=== PATIENT | female | born 1995 | race African-American/Black ===

== ENCOUNTER 2017-09-05 20:57 | Emergency (ER) | payer MEDICAID ==
[~2017-09-05] VITALS: Ht 160 cm; Wt 56.6 kg
[2017-09-06] MEDS ORDERED: MORPHINE SULFATE 4 MG/ML CPJ (NOT FOR IM USE) IV STA (02:57)
[2017-09-06] MEDS ORDERED: FAMOTIDINE 20MG/2ML VIAL IV STA (02:57)
[2017-09-06] MEDS ORDERED: SODIUM CHLORIDE 0.9% 1,000 ML IV ONE (02:57)
[2017-09-06] MEDS ORDERED: ONDANSETRON HCL 4MG/2ML VIAL IV STA (02:57)
[2017-09-06 03:20] LABS: BASOPHILS % 0.8 % (0.0-2.0); EOSINOPHILS % 1.1 % (0.0-5.0); HEMATOCRIT. 34.5 % (36.0-48.0); LYMPHOCYTES % 27.5 % (20.0-50.0); MEAN CORPUSCULAR VOLUME 74.8 fL (81.0-99.0); MEAN PLATELET VOLUME 8.4 fl (7.4-10.4); MONOCYTES % 9.8 % (2.0-8.0); NEUTROPHILS % 60.8 % (40.0-76.0); PLATELET 320 x1000/uL (130-400); RED BLOOD CELL COUNT 4.61 mill/uL (4.2-5.4); RED CELL DISTRIBUTION WIDTH 14.9 % (11.6-14.6)
[2017-09-06 03:23] LABS: INR 1.1; PROTHROMBIN TIME 11.6 sec (9.4-11.6)
[2017-09-06 03:27] LABS: HCG SCREEN NEGATIVE
[2017-09-06 03:30] LABS: CHLORIDE 103 mEq/L (98-107); ETHANOL BLOOD < 10 mg/dL
[2017-09-06] MEDS ORDERED: KCL 20MEQ/100ML PREMIX 100 ML IV NR (04:15)
[2017-09-06 04:18] LABS: CLARITY URINE CLOUDY (CLEAR); COLOR URINE DARK YELLOW (YELLOW); KETONES URINE 3+ (NEGATIVE); LEUKOCYTE ESTERASE URINE NEGATIVE (NEGATIVE); NITRITE URINE NEGATIVE (NEGATIVE); OCCULT BLOOD URINE NEGATIVE (NEGATIVE); PROTEIN URINE 1+ (NEGATIVE); SPECIFIC GRAVITY URINE 1.031 (1.005-1.030); UROBILINOGEN URINE 0.2 E.U./dL (0.2-1.0)
[2017-09-06 04:38] LABS: *AMPHETAMINES SCREEN URINE NEGATIVE (NEGATIVE); *BARBITURATES SCREEN URINE NEGATIVE (NEGATIVE); *BENZODIAZEPINES SCREEN URINE NEGATIVE (NEGATIVE); *COCAINE SCREEN URINE NEGATIVE (NEGATIVE); METHADONE URINE SCREEN NEGATIVE (NEGATIVE); OPIATES URINE SCREEN NEGATIVE (NEGATIVE); PHENCYCLIDINE URINE SCREEN NEGATIVE (NEGATIVE)
[2017-09-06 04:40] LABS: CANNABINOID URINE SCREEN PRESUMTIVE POSITIVE (NEGATIVE)
[2017-09-06 07:36] VITALS: BP 106/70
== END 2017-09-06 07:36 | disposition home or self-care (01) ==
LOC: ER 22:46
DX: R10.9 Unspecified abdominal pain (principal); R11.2 Nausea with vomiting, unspecified; E87.6 Hypokalemia; N93.9 Abnormal uterine and vaginal bleeding, unspecified; R03.0 Elevated blood-pressure reading, without diagnosis of hypertension
CPT/HCPCS: 36415; 74176; 76830; 76856; 80053; 80305; 81003; 83605; 83690; 84703; 85025; 85610; 96361; 96365; 96366; 96375; 99285; G0482; J2270; J2405; J3480; J3490; J7030; Z7610

== ENCOUNTER 2019-07-10 20:43 | Emergency (ER) | payer MEDICAID ==
[~2019-07-10] VITALS: Ht 160 cm; Wt 57.3 kg
[2019-07-10] MEDS ORDERED: ONDANSETRON HCL 4MG/2ML INJ IV STA (22:03)
[2019-07-10] MEDS ORDERED: SODIUM CHLORIDE 0.9% 1,000 ML IV ONE (22:03)
[2019-07-10] MEDS ORDERED: KETOROLAC 30MG/ML VIAL IV STA (22:03)
[2019-07-10 22:59] LABS: BASOPHILS % 0.4 % (0.0-2.0); HEMATOCRIT. 36.8 % (36.0-48.0); HEMOGLOBIN. 12.7 g/dL (12.0-16.0); LYMPHOCYTES % 12.2 % (20.0-50.0); MEAN CORPUSCULAR HEMOGLOBIN 26.3 pg (28.0-32.0); MEAN CORPUSCULAR VOLUME 76.3 fL (81.0-99.0); MEAN PLATELET VOLUME 9.2 fl (7.4-10.4); MONOCYTES % 13.6 % (2.0-8.0); NEUTROPHILS % 73.8 % (40.0-76.0); PLATELET 219 x1000/uL (130-400); RED BLOOD CELL COUNT 4.82 mill/uL (4.2-5.4); RED CELL DISTRIBUTION WIDTH 14.5 % (11.6-14.6)
[2019-07-10 23:00] LABS: CHLORIDE 105 mEq/L (98-107)
[2019-07-10 23:09] LABS: CLARITY URINE CLEAR (CLEAR); COLOR URINE DARK YELLOW (YELLOW); KETONES URINE 3+ (NEGATIVE); LEUKOCYTE ESTERASE URINE NEGATIVE (NEGATIVE); NITRITE URINE NEGATIVE (NEGATIVE); OCCULT BLOOD URINE NEGATIVE (NEGATIVE); PH URINE 5.5 (4.5-8.0); PROTEIN URINE 1+ (NEGATIVE); SPECIFIC GRAVITY URINE 1.038 (1.005-1.030)
[2019-07-10] MEDS ORDERED: POTASSIUM CHLORIDE 20MEQ TABLET SR PO ONE (23:45)
[2019-07-11 00:21] VITALS: BP 112/78
== END 2019-07-11 00:38 | disposition home or self-care (01) ==
LOC: ER 20:43
DX: R10.9 Unspecified abdominal pain (principal); R11.2 Nausea with vomiting, unspecified; E87.6 Hypokalemia
CPT/HCPCS: 36415; 74176; 80053; 81003; 81025; 83690; 85025; 96361; 96374; 96375; 99284; J1885; J2405; J7030